=== PATIENT | female | born 1975 | race Caucasian/White ===

== ENCOUNTER 2025-05-15 17:24 | Inpatient (IN) | payer OTHER ==
[2025-05-15 17:48] VITALS: BMI 30.2
[2025-05-15] MEDS ORDERED: diazePAM CARPU-JECT 10 MG/2 ML DISP.SYRIN ONE (19:19)
[2025-05-15] MEDS ORDERED: KETOROLAC TROMETHAMINE 15 MG/ML VIAL ONE (19:19)
[2025-05-15] MEDS: KETOROLAC TROMETHAMINE 30 MG/1 ML VIAL IVPUSH ONE (19:41)
[2025-05-15 19:42] LABS: ABSOLUTE IMMATURE GRANULOCYTES 0.06 x10^3/uL (0.0-0.031); BASOPHILS # 0.02 x10^3/uL (0.01-0.08); EOSINOPHIL % 0.0 % (0.7-5.8); EOSINOPHILS # 0.00 x10^3/uL (0.04-0.36); MCHC 31.8 g/dl (32.2-35.5); MEAN CELL VOLUME 90.5 fl (79.4-94.8); MEAN PLT VOLUME 9.5 fl (9.4-12.3); MONOCYTE # 0.32 x10^3/uL (0.24-0.86); MONOCYTE % 2.2 % (4.7-12.5); RDW 14.1 % (12.3-16.6)
[2025-05-15] MEDS: diazePAM CARPU-JECT 10 MG/2 ML DISP.SYRIN IVPUSH ONE (19:42)
[2025-05-15] MEDS: LACTATED RINGERS SOLUTION 1000 ML INFUS.BAG IV ONE (19:48)
[2025-05-15 19:53] LABS: CO2 23.0 mmol/L (21-32); GLUCOSE,RANDOM 133.0 mg/dL (74-106)
[2025-05-15 19:55] LABS: CREATININE 0.9 mg/dL (0.55-1.3); SGOT/AST 40.0 U/L (15-37); SGPT/ALT 30.0 U/L (13-61)
[2025-05-15 19:57] LABS: TOT PROT 7.9 g/dl (6.4-8.2)
[2025-05-15 19:59] LABS: ALK PHOS 152.0 U/L (45-117)
[2025-05-15] MEDS: morphine CARPU-JECT 4 MG/1 ML DISP.SYRIN IVPUSH ONE (22:12)
[2025-05-15] MEDS: SODIUM CHLORIDE 1,000 ML IV SCH (22:12)
[2025-05-15] MEDS ORDERED: POTASSIUM CHLORIDE ORAL LIQUID 20 MEQ/15 ML ONE (22:13)
[2025-05-15] MEDS ORDERED: MAGNESIUM SULFATE IN WATER 2 GM/50 ML IVPB IVPB ONE (22:14)
[2025-05-15] MEDS: CIPROFLOXACIN 500 MG TABLET (RESTRICTED TO ID) PO ONE (22:16)
[2025-05-15] MEDS: MAGNESIUM SULFATE IN WATER 2 GM/50 ML IVPB IVPB ONE (22:19)
[2025-05-15] MEDS: POTASSIUM CHLORIDE ORAL LIQUID 20 MEQ/15 ML PO ONE (22:19)
[2025-05-16] MEDS ORDERED: CEFTRIAXONE 1 GM/50 ML BAG ONE (01:34)
[2025-05-16] MEDS ORDERED: MAGNESIUM CITRATE 300 ML BOTTLE ONE (01:34)
[2025-05-16] MEDS: CEFTRIAXONE 1 GM in DEXTROSE 5%-WATER - 50 ML IVPB SCH (01:42)
[2025-05-16] MEDS: MINERAL OIL ENEMA 133 ML ENEMA RC ONE (01:42)
[2025-05-16] MEDS: MAGNESIUM CITRATE 300 ML BOTTLE PO ONE (01:42)
[2025-05-16] MEDS: MAGNESIUM SULF 50% (8.12 MEQ/2 ML-1 GM VIAL) IVPB ONE (03:57)
[2025-05-16] MEDS ORDERED: KETOROLAC TROMETHAMINE 30 MG/1 ML VIAL ONE (05:20)
[2025-05-16] MEDS ORDERED: SIMETHICONE 80 MG TAB.CHEW (FP) ONE (05:20)
[2025-05-16] MEDS ORDERED: MINERAL OIL ENEMA 133 ML ENEMA RC ONE (05:30)
[2025-05-16] MEDS: KETOROLAC TROMETHAMINE 30 MG/1 ML VIAL IVPUSH ONE (05:37)
[2025-05-16] MEDS: SIMETHICONE 80 MG TAB.CHEW (FP) PO ONE (05:37)
[2025-05-16 06:48] LABS: MCHC 31.7 g/dl (32.2-35.5); MEAN CELL VOLUME 90.7 fl (79.4-94.8); MEAN PLT VOLUME 9.6 fl (9.4-12.3); RDW 13.9 % (12.3-16.6)
[2025-05-16 07:12] LABS: GLUCOSE,RANDOM 97.0 mg/dL (74-106)
[2025-05-16 07:13] LABS: CO2 22.0 mmol/L (21-32)
[2025-05-16 07:16] LABS: CREATININE 0.7 mg/dL (0.55-1.3); SGOT/AST 24.0 U/L (15-37); SGPT/ALT 27.0 U/L (13-61)
[2025-05-16 07:17] LABS: ALK PHOS 131.0 U/L (45-117); TOT PROT 6.9 g/dl (6.4-8.2)
[2025-05-16] MEDS: ACETAMINOPHEN 1000 MG/100 ML BAG IVPB PRN (13:13)
[2025-05-16] MEDS: ENOXAPARIN NA (PORCINE) 40 MG/0.4 ML DISP.SYRIN SQ SCH (13:33)
[2025-05-16] MEDS: PANTOPRAZOLE SODIUM 40 MG VIAL IVPUSH SCH (14:30)
[2025-05-16] MEDS: DICYCLOMINE HCL 10 MG/5 ML PO ONE (15:18)
[2025-05-16 19:49] LABS: EPI CELLS 3 /uL (0-25.1); HYALINE CASTS 0 /uL (0-3.1); URINE APPEARANCE Error; URINE BACTERIA 19 /uL (0-1359); URINE BILIRUBIN NEGATIVE (NEGATIVE); URINE COLOR YELLOW; URINE GLUCOSE (UA) NEGATIVE (NEGATIVE); URINE KETONE NEGATIVE (NEGATIVE); URINE LEUK ESTERASE NEGATIVE (NEGATIVE); URINE NITRITE NEGATIVE (NEGATIVE); URINE PROTEIN NEGATIVE (NEGATIVE); URINE RBC 27 /uL (0-23.9); URINE UROBILINOGEN 0.2 mg/dL (0.2-1.0); URINE WBC 5 /uL (0-25.8)
[2025-05-16] MEDS: ONDANSETRON 4 MG/2 ML VIAL IVPUSH PRN (21:34)
[2025-05-16 21:46] LABS: COCAINE, UR NEGATIVE (NEGATIVE); METHADONE, UR NEGATIVE (NEGATIVE); OPIATES, URI NEGATIVE (NEGATIVE); PHENCYCLIDINE,URINE NEGATIVE (NEGATIVE); URINE AMPHETAMINES NEGATIVE (NEGATIVE); URINE BARBITURATES NEGATIVE (NEGATIVE); URINE BENZODIAZEPINES NEGATIVE (NEGATIVE)
[2025-05-16] MEDS: KETOROLAC TROMETHAMINE 15 MG/ML VIAL IVPUSH ONE (23:15)
[2025-05-17 08:01] LABS: ABSOLUTE IMMATURE GRANULOCYTES 0.04 x10^3/uL (0.0-0.031); BASOPHILS # 0.04 x10^3/uL (0.01-0.08); EOSINOPHIL % 0.2 % (0.7-5.8); EOSINOPHILS # 0.02 x10^3/uL (0.04-0.36); MCHC 31.4 g/dl (32.2-35.5); MEAN CELL VOLUME 91.8 fl (79.4-94.8); MEAN PLT VOLUME 9.3 fl (9.4-12.3); MONOCYTE # 1.06 x10^3/uL (0.24-0.86); MONOCYTE % 9.4 % (4.7-12.5); RDW 13.6 % (12.3-16.6)
[2025-05-17 08:41] LABS: CO2 22.0 mmol/L (21-32); GLUCOSE,RANDOM 96.0 mg/dL (74-106)
[2025-05-17 08:44] LABS: CREATININE 0.7 mg/dL (0.55-1.3); SGOT/AST 24.0 U/L (15-37); SGPT/ALT 22.0 U/L (13-61)
[2025-05-17 08:45] LABS: TOT PROT 6.2 g/dl (6.4-8.2)
[2025-05-17 08:47] LABS: ALK PHOS 108.0 U/L (45-117)
[2025-05-18 06:08] VITALS: RESP 16
[2025-05-18 08:10] LABS: MCHC 31.6 g/dl (32.2-35.5); MEAN CELL VOLUME 90.7 fl (79.4-94.8); MEAN PLT VOLUME 9.6 fl (9.4-12.3); RDW 13.4 % (12.3-16.6)
[2025-05-18 08:56] LABS: CO2 23.0 mmol/L (21-32); GLUCOSE,RANDOM 80.0 mg/dL (74-106)
[2025-05-18 08:59] LABS: CREATININE 0.8 mg/dL (0.55-1.3); SGOT/AST 27.0 U/L (15-37); SGPT/ALT 24.0 U/L (13-61)
[2025-05-18 09:01] LABS: TOT PROT 6.7 g/dl (6.4-8.2)
[2025-05-18 09:02] LABS: ALK PHOS 115.0 U/L (45-117)
[2025-05-18 09:47] VITALS: BP 140/83; PULSE 73; TEMP 98.1
== END 2025-05-18 11:59 | disposition home or self-care (01) | DRG 392 ==
LOC: JER 17:24 → EDBD 17:24 → JERBED 21:38 → OBSVTOIN 21:54 → J7W 05-16 06:16
PROVIDERS: ADMIT Internal Medicine
DX: K57.30 Diverticulosis of large intestine without perforation or abscess without bleeding (principal); K52.89 Other specified noninfective gastroenteritis and colitis; K59.00 Constipation, unspecified; M62.838 Other muscle spasm; J45.909 Unspecified asthma, uncomplicated; F12.10 Cannabis abuse, uncomplicated; E66.89 Other obesity not elsewhere classified; Z68.30 Body mass index [BMI] 30.0-30.9, adult
CPT/HCPCS: 36415; 71045-TC-FY; 74177-TC; 80053; 80307; 81003; 82248; 82550; 82553; 83605; 83690; 83735; 84100; 84132; 84703; 85025; 85027; 93005; 93010; 99285-25; G0378; Q9967